=== PATIENT | female | born 1970 | race African-American/Black ===

== ENCOUNTER 2021-05-08 12:35 | Emergency (ER) | payer OTHER ==
[~2021-05-08] VITALS: Ht 170.2 cm; Wt 89.0 kg
[~2021-05-08 12:35] MED LIST: COMPAZINE; [UNRECOGNIZED DRUG - OTHER]; atenolol; norco
[2021-05-08 12:50] VITALS: BP 169/101
[2021-05-08] MEDS ORDERED: ONDANSETRON HCL 4MG/2ML INJ IV STA (14:10)
[2021-05-08] MEDS ORDERED: SODIUM CHLORIDE 0.9% 1,000 ML IV ONE (14:15)
[2021-05-08 14:31] LABS: HEMATOCRIT. 34.5 % (36.0-48.0); HEMOGLOBIN. 11.5 g/dL (12.0-16.0); MEAN CORPUSCULAR HEMOGLOBIN 26.1 pg (28.0-32.0); MEAN CORPUSCULAR VOLUME 78.6 fL (81.0-99.0); MEAN PLATELET VOLUME 8.2 fl (7.4-10.4); PLATELET 425 x1000/uL (130-400); RED BLOOD CELL COUNT 4.39 mill/uL (4.2-5.4); RED CELL DISTRIBUTION WIDTH 14.4 % (11.6-14.6)
[2021-05-08 14:37] LABS: CHLORIDE 105 mEq/L (98-107)
[2021-05-08 14:40] LABS: ETHANOL BLOOD < 10 mg/dL
[2021-05-08 14:51] LABS: PLATELET ESTIMATE INCREAS
[2021-05-08 14:56] LABS: CLARITY URINE CLEAR (CLEAR); COLOR URINE YELLOW (YELLOW); KETONES URINE NEGATIVE (NEGATIVE); LEUKOCYTE ESTERASE URINE NEGATIVE (NEGATIVE); NITRITE URINE NEGATIVE (NEGATIVE); OCCULT BLOOD URINE TRACE (NEGATIVE); PROTEIN URINE NEGATIVE (NEGATIVE); SPECIFIC GRAVITY URINE 1.003 (1.005-1.030); UROBILINOGEN URINE 0.2 E.U./dL (0.2-1.0)
[2021-05-08 15:15] LABS: OPIATES URINE SCREEN NEGATIVE (NEGATIVE)
[2021-05-08 15:16] LABS: *AMPHETAMINES SCREEN URINE NEGATIVE (NEGATIVE); *BARBITURATES SCREEN URINE NEGATIVE (NEGATIVE); *BENZODIAZEPINES SCREEN URINE NEGATIVE (NEGATIVE); *COCAINE SCREEN URINE NEGATIVE (NEGATIVE); CANNABINOID URINE SCREEN NEGATIVE (NEGATIVE); METHADONE URINE SCREEN NEGATIVE (NEGATIVE); PHENCYCLIDINE URINE SCREEN NEGATIVE (NEGATIVE)
[2021-05-08] MEDS ORDERED: ONDANSETRON 4MG ODT PO ONE (16:15)
[2021-05-08] MEDS ORDERED: MECLIZINE 25MG TABLET PO ONE (16:15)
[2021-05-08] MEDS ORDERED: ONDA4TAB11 PO (16:18)
[2021-05-08] MEDS ORDERED: MECL-159 MT (16:18)
== END 2021-05-08 16:29 | disposition home or self-care (01) ==
LOC: ER 12:35
DX: R42 Dizziness and giddiness (principal); R00.0 Tachycardia, unspecified; I10 Essential (primary) hypertension; E78.00 Pure hypercholesterolemia, unspecified
CPT/HCPCS: 36415; 70450; 80053; 80305; 80320; 81003; 85025; 93005; 99285; J7030; J8597; Q0162; G0480

== ENCOUNTER 2022-07-28 20:24 | Emergency (ER) | payer OTHER ==
[~2022-07-28] VITALS: Ht 162.6 cm; Wt 116.3 kg
[~2022-07-28 20:24] MED LIST changes: +MECL-159 MT; +ONDA4TAB11 PO
[2022-07-28 23:20] LABS: BASOPHILS % 0.6 % (0.0-2.0); EOSINOPHILS % 1.6 % (0.0-5.0); HEMOGLOBIN. 11.4 g/dL (12.0-16.0); LYMPHOCYTES % 23.3 % (20.0-50.0); MEAN CORPUSCULAR HEMOGLOBIN 24.7 pg (28.0-32.0); MEAN CORPUSCULAR VOLUME 77.8 fL (81.0-99.0); MONOCYTES % 5.4 % (2.0-8.0); NEUTROPHILS % 69.1 % (40.0-76.0); PLATELET 417 x1000/uL (130-400); RED BLOOD CELL COUNT 4.63 mill/uL (4.2-5.4); RED CELL DISTRIBUTION WIDTH 17.2 % (11.6-14.6)
[2022-07-28 23:46] VITALS: BP 118/78
== END 2022-07-28 23:49 | disposition home or self-care (01) ==
LOC: ER 20:24
DX: R04.0 Epistaxis (principal); E11.9 Type 2 diabetes mellitus without complications; I10 Essential (primary) hypertension; Z98.890 Other specified postprocedural states
CPT/HCPCS: 36415; 85025; 99283